=== PATIENT | female | born 1995 | race American Indian/Alaskan Native ===

== ENCOUNTER 2016-10-25 13:00 | Emergency (ER) | payer SELFPAY ==
[2016-10-25 14:23] LABS: Basophils % (Auto) 0.4 % (0.0-1.8); Hematocrit 41.2 % (30.3-42.9); Hemoglobin 13.5 gm/dl (10.1-14.3); Mean Corpuscular HGB Conc 33 % (30-34); Mean Corpuscular Hemoglobin 27 pg (28-32); Mean Corpuscular Volume 82 fl (79-97); Platelet Count 378 K/mm3 (140-440); Red Blood Count 5.02 M/mm3 (3.65-5.03); Red Cell Distribution Width 13.2 % (13.2-15.2); White Blood Count 10.7 K/mm3 (4.5-11.0)
[2016-10-25 14:41] LABS: Alanine Aminotransferase 7 units/L (7-56); Albumin 4.2 g/dL (3.9-5); Albumin/Globulin Ratio 1.1 %; Alkaline Phosphatase 71 units/L (35-129); Anion Gap 23 mmol/L; Bilirubin,Total 0.3 mg/dL (0.1-1.2); Blood Urea Nitrogen 9 mg/dL (7-17); Calcium 9.3 mg/dL (8.4-10.2); Carbon Dioxide 23 mmol/L (22-30); Chloride 103.5 mmol/L (98-107); Glucose 112 mg/dL (65-100); Lipase 14 units/L (13-60); Potassium 4.1 mmol/L (3.6-5.0); Sodium 145 mmol/L (137-145)
[2016-10-25 16:07] LABS: Bilirubin,Urine NEG (Negative); Blood,Urine LG (Negative); Ketones,Urine 20 mg/dL (Negative); Leukocyte Esterase,Urine NEG (Negative); Mucus,Urine 3+ /HPF; Nitrite,Urine NEG (Negative)
--- NOTE | 2016-10-25 21:07 | Emergency Department Report ---
ED Abdominal Pain HPI - General Chief Complaint: Abdominal Pain Stated Complaint: ABD PAIN Time Seen by Provider: 10/25/16 20:56 Source: patient, EMS Mode of arrival: Ambulatory Limitations: No Limitations - History of Present Illness Initial Comments: 21 y/o female awaken this am with right flank pain radiating to pelvis area .pt complain of nausea .pt state pain 5/10 at present .pt state she do not want any pain medication at present time .denies any vaginal discharge or bleeding at present . MD Complaint: flank pain -: Sudden Location: R flank Radiation: other (pelvic area) Severity scale (0 -10): 5 Quality: aching Improves With: nothing Worsens With: nothing Associated Symptoms: nausea, dysuria - Related Data LMP Date: 09/30/16 Previous Rx's Medication Instructions Recorded Last Taken Type Acetaminophen/Codeine [Tylenol #3] 1 tab PO Q6H PRN #15 tab 10/25/16 Unknown Rx Ibuprofen [Motrin] 800 mg PO Q8HR PRN #30 tablet 10/25/16 Unknown Rx Allergies Allergy/AdvReac Type Severity Reaction Status Date / Time Fish Containing Products Allergy Swelling Verified 10/25/16 13:40 shellfish derived Allergy Swelling Verified 10/25/16 13:40 ED Review of Systems ROS: Stated complaint: ABD PAIN Other details as noted in HPI Constitutional: denies: chills, fever Eyes: denies: eye pain, eye discharge, vision change ENT: denies: ear pain, throat pain Respiratory: denies: cough, shortness of breath, wheezing Cardiovascular: denies: chest pain, palpitations Endocrine: no symptoms reported Gastrointestinal: abdominal pain, nausea. denies: diarrhea Genitourinary: dysuria. denies: urgency, discharge Musculoskeletal: denies: back pain, joint swelling, arthralgia Skin: denies: rash, lesions Neurological: denies: headache, weakness, paresthesias Psychiatric: denies: anxiety, depression Hematological/Lymphatic: denies: easy bleeding, easy bruising ED Past Medical Hx - Past Medical History Previous Medical History?: No - Surgical History Past Surgical History?: No - Social History Smoking Status: Unknown if ever smoked Substance Use Type: None - Medications Home Medications: Home Medications Medication Instructions Recorded Confirmed Last Taken Type Acetaminophen/Codeine [Tylenol #3] 1 tab PO Q6H PRN #15 tab 10/25/16 Unknown Rx Ibuprofen [Motrin] 800 mg PO Q8HR PRN #30 tablet 10/25/16 Unknown Rx ED Physical Exam - General Limitations: No Limitations General appearance: alert, in no apparent distress - Head Head exam: Present: atraumatic, normocephalic - Eye Eye exam: Present: normal appearance - ENT ENT exam: Present: mucous membranes moist - Neck Neck exam: Present: normal inspection - Respiratory Respiratory exam: Present: normal lung sounds bilaterally. Absent: respiratory distress - Cardiovascular Cardiovascular Exam: Present: regular rate, normal rhythm. Absent: systolic murmur, diastolic murmur, rubs, gallop - GI/Abdominal GI/Abdominal exam: Present: soft, normal bowel sounds, other - Extremities Exam Extremities exam: Present: normal inspection - Back Exam Back exam: Present: normal inspection, CVA tenderness (R) - Neurological Exam Neurological exam: Present: alert, oriented X3 - Psychiatric Psychiatric exam: Present: normal affect, normal mood - Skin Skin exam: Present: warm, dry, intact, normal color. Absent: rash ED Course Vital Signs 10/25/16 10/25/16 10/25/16 13:40 20:15 22:20 Temperature 98.2 F 98.2 F Pulse Rate 117 H 99 H Respiratory 20 14 18 Rate Blood Pressure 116/77 Blood Pressure 137/87 [Left] O2 Sat by Pulse 100 97 Oximetry ED Medical Decision Making - Lab Data Result diagrams: 10/25/16 14:10 10/25/16 14:10 - Medical Decision Making renal calculus ct impression : mild periureteral stranding note on the right .no obstructing calculus .non obstructing 0.36 centimeter lower pole left renal calculus Critical care attestation.: If time is entered above; I have spent that time in minutes in the direct care of this critically ill patient, excluding procedure time. ED Disposition Clinical Impression: Renal calculus or stone Disposition: DISCHARGED TO HOME OR SELFCARE Is pt being admited?: No Does the pt Need Aspirin: No Condition: Stable Instructions: Kidney Stones (ED), Flank Pain (ED) Prescriptions: Acetaminophen/Codeine [Tylenol #3] 1 tab PO Q6H PRN #15 tab PRN Reason: Pain Ibuprofen [Motrin] 800 mg PO Q8HR PRN #30 tablet PRN Reason: Pain Referrals: PRIMARY CARE, [Primary Care Provider] - 3-5 Days LUIS ANGEL MORRISSEY MD [Staff Physician] - 3-5 Days Forms: Work/School Release Form(ED) Time of Disposition: 22:20
--- NOTE | 2016-10-25 21:32 | Cat Scan Report ---
FINAL REPORT EXAM: CT ABDOMEN PELVIS WO CON HISTORY: right flank pain TECHNIQUE: CT abdomen and pelvis without contrast PRIORS: None. FINDINGS: No acute abnormality identified in the lung bases. No focal abnormality identified within the liver parenchyma. The spleen demonstrates normal size and attenuation. No pancreatic abnormalities seen. There is no evidence for right hydronephrosis or nephrolithiasis. There is some mild periureteral stranding noted proximal right ureter which is nondilated. No obstructing calculus identified. There is a nonobstructing 0.36 centimeter lower pole left renal calculus as well as a punctate midpole nonobstructing calculus. No evidence for hydronephrosis or ureteral calculus. The adrenal glands are unremarkable. Abdominal aorta is normal in caliber. No pathologically enlarged lymph nodes are identified. No signs of free fluid or free air No evidence of small bowel dilatation. The appendix is identified and is normal in size no adjacent inflammatory change seen. Pericolonic inflammatory changes are observed. Urinary bladder is unremarkable. IMPRESSION: Mild periureteral stranding noted on the right. No obstructing calculus identified. Could reflect recently passed calculus or UTI. Nonobstructing left renal calculi noted
[2016-10-25 22:34] VITALS: BP 137/87
== END 2016-10-25 22:20 | disposition home or self-care (01) ==
LOC: ED 13:00
DX: N20.0 Calculus of kidney (principal)
CPT/HCPCS: 36415; 74176; 80053; 81001; 83690; 84703; 85025; 99284